=== PATIENT | male | born 1995 | race Caucasian/White ===

== ENCOUNTER 2022-09-06 20:28 | Emergency (ER) | payer BC ==
[2022-09-06] MEDS: Lidocaine 1% 5 ML VIAL INJECT ONE (22:44)
[2022-09-06] MEDS: Bacitracin Oint 1 GM U/D Packet ONE (22:44)
== END 2022-09-06 21:35 | disposition home or self-care (01) ==
LOC: LL.ED 20:28
DX: S61.210A Laceration without foreign body of right index finger without damage to nail, initial encounter (principal); W26.0XXA Contact with knife, initial encounter; Y93.G9 Activity, other involving cooking and grilling
CPT/HCPCS: 12001; 99282; 99283

== ENCOUNTER 2024-05-17 20:03 | Emergency (ER) | payer BC ==
[2024-05-17 20:38] LABS: BASOPHILS ABSOLUTE AUTO 0.03 K/uL (0.00-0.20); BASOPHILS PERCENT AUTO 0.3 % (0.0-2.0); EOSINOPHILS ABSOLUTE AUTO 0.12 K/uL (0.00-0.50); HEMATOCRIT 47.6 % (39.0-49.0); HEMOGLOBIN 16.5 g/dL (13.1-16.8); LYMPHOCYTES ABSOLUTE AUTO 1.54 K/uL (0.50-3.50); LYMPHOCYTES PERCENT AUTO 13.4 % (10.0-50.0); MEAN CORPUSCULAR HEMOGLOBIN 30.2 pg (28.2-33.3); MEAN CORPUSCULAR HGB CONC 34.7 g/dL (31.7-36.0); MEAN CORPUSCULAR VOLUME 87.2 fL (84.0-98.0); MONOCYTES PERCENT AUTO 7.8 % (2.0-14.0); NEUTROPHILS ABSOLUTE AUTO 8.91 K/uL (1.40-7.00); NEUTROPHILS PERCENT AUTO 77.5 % (45.0-80.0); PLATELET COUNT,PLT 190 K/uL (150-350); RED BLOOD CELL COUNT 5.46 M/uL (4.33-5.41); RED CELL DISTRIBUTION WIDTH 11.9 % (11.2-14.1); WHITE BLOOD CELL COUNT,WBC 11.5 K/uL (4.0-10.2)
[2024-05-17 20:46] LABS: APPEARANCE,URINE CLEAR; BILIRUBIN,URINE NEGATIVE (NEGATIVE); COLOR,URINE YELLOW; GLUCOSE,URINE NEGATIVE (NEGATIVE); KETONES,URINE 15 mg/dL (NEGATIVE); LEUKOCYTE ESTERASE,URINE NEGATIVE (NEGATIVE); NITRITE,URINE NEGATIVE (NEGATIVE); OCCULT BLOOD,URINE NEGATIVE (NEGATIVE); PH,URINE 5.5 (5.0-9.0); PROTEIN,URINE NEGATIVE (NEGATIVE); UROBILINOGEN,URINE 0.2 E.U./dL (0.2-1.0)
[2024-05-17 20:57] LABS: ALANINE AMINOTRANSFERASE,ALT 20 U/L (12-78); ALBUMIN 4.2 g/dL (3.4-5.0); ALKALINE PHOSPHATASE 81 IU/L (46-116); ASPARTATE AMNIOTRANSFERASE,AST 19 U/L (15-37); BILIRUBIN TOTAL 0.6 mg/dL (0.2-1.0); BLOOD UREA NITROGEN,BUN 13 mg/dL (7-18); CALCIUM 9.6 mg/dL (8.5-10.1); CARBON DIOXIDE,CO2 28.2 mmol/L (21.0-32.0); CHLORIDE,CL 97 mmol/L (98-107); CREATININE 1.05 mg/dL (0.51-1.17); GLUCOSE RANDOM 101 mg/dL (70-99); POTASSIUM,K 3.5 mmol/L (3.5-5.1); PROTEIN TOTAL,TP 8.7 g/dL (6.4-8.2); SODIUM,NA 135 mmol/L (136-145)
[2024-05-17 21:03] LABS: ANION GAP 13.3 meq/L (7-15); ESTIMATED GFR 99 mL/min (>=60)
[2024-05-17] MEDS ORDERED: Sodium Chloride 0.9% 10 ML Syringe FLUSH PRN (21:23)
[2024-05-17] MEDS: Iopamidol 612 MG/ML 100 ML Bottle ONE (21:44)
[2024-05-17] MEDS ORDERED: Naloxone 0.4 MG/ML SDV IVPUSH PRN (22:17)
[2024-05-17] MEDS: Sodium Chloride 0.9% 1,000 ML IV ONE (22:26)
[2024-05-17] MEDS: Ondansetron 4 MG/2 ML SDV IVPUSH ONE (23:08)
[2024-05-17] MEDS: Morphine 2 MG/ML SYRINGE IVPUSH ONE (23:08)
== END 2024-05-17 23:20 ==
LOC: LL.ED 20:03
DX: K35.30 Acute appendicitis with localized peritonitis, without perforation or gangrene (principal)
CPT/HCPCS: 36415; 74019; 74177; 80053; 81003; 83605; 85025; 96361; 96374; 96375; 99285-25; J2270; J2405; J7030; Q9967